=== PATIENT | female | born 1980 | race Caucasian/White ===

== ENCOUNTER 2021-09-11 06:00 | Outpatient (RCR) | payer SELFPAY ==
[~2021-09-11 06:00] MED LIST: RANI15TA PO; RANI1TAB38 PO
== END 2021-09-11 15:00 | disposition home or self-care (01) ==
LOC: M EMP 06:00
PROVIDERS: ATTEND Pediatrics
DX: Z11.52 Encounter for screening for COVID-19 (principal)

== ENCOUNTER → 2021-10-17 | Outpatient (CLI) | payer BC, OTHER ==
[2021-10-17 18:13] LABS: BASO # 0.1 10^3/uL (0.0-0.2); BASO % 0.6 % (0.0-1.0); EOS # 0.2 10^3/uL (0.0-0.5); EOS % 2.6 % (0.0-3.0); HEMOGLOBIN 13.1 g/dl (12.0-15.5); LYMPH # 2.5 10^3/uL (1.5-5.0); MEAN CORPUSCULAR HEMOGLOBIN 28.5 pg (27.0-33.0); MEAN CORPUSCULAR VOLUME 89.1 fl (80.0-96.0); MONO # 0.4 10^3/uL (0.0-0.8); MONO % 5.4 % (2.0-8.0); NEUTROPHILS # 4.8 10^3/uL (1.5-8.5); NEUTROPHILS % 60.1 % (36.0-66.0); PLATELET COUNT, AUTOMATED 295 10^3/uL (150-450)
[2021-10-17 18:46] LABS: FREE T4 0.96 NG/DL (0.76-1.46); THYROID STIMULATING HORMONE 1.93 uIU/ML (0.358-3.740)
[2021-10-17 18:48] LABS: LUTEINIZING HORMONE 3.6 mIU/mL
[2021-10-17 18:49] LABS: FOLLICLE STIMULATING HORMONE 8.8 mIU/mL
== END ==
LOC: M LAB 17:32
PROVIDERS: ATTEND Specialist
DX: N93.9 Abnormal uterine and vaginal bleeding, unspecified (principal)